=== PATIENT | male | born 1940 | race Caucasian/White ===

== ENCOUNTER → 2018-07-09 | Outpatient (CLI) | payer MEDICARE | LOC: GMAL 15:44 | PROVIDERS: ATTEND Family Medicine | DX: D51.3 Other dietary vitamin B12 deficiency anemia (principal); R53.83 Other fatigue; E55.9 Vitamin D deficiency, unspecified ==

== ENCOUNTER → 2018-07-27 | Outpatient (CLI) | payer MEDICARE, OTHER | LOC: GMAL 14:26 | PROVIDERS: ATTEND Family Medicine | DX: D50.8 Other iron deficiency anemias (principal) ==

== ENCOUNTER 2018-08-03 17:25 | Emergency (ER) | payer OTHER, MEDICARE ==
[2018-08-03] MEDS ORDERED: IPRATROPIUM/ALBUTEROL 3 ML VIAL NEB ONE ×2 (17:55→19:23)
--- NOTE | 2018-08-03 17:58 | ED.PDOC ---
History of Present Illness - General Chief Complaint: Respiratory Problem Stated Complaint: shortness of breath Time Seen by Provider: 08/03/18 17:47 Source: patient Exam Limitations: no limitations - History of Present Illness Comments: Has had cough and SOB x 2 weeks. Denies COPD Hx. Has no O2 at home. Hx of Bang wine daily, stopped smoking two yrs ago Cough Quality/Degree: dry cough Possible Cause: occasional episodes Improving Factors: nothing Worsening Factors: movement Associated Symptoms: cough, shortness of breath Allergies/Adverse Reactions: Allergies NO KNOWN ALLERGY Allergy (Verified 08/03/18 17:51) Home Medications: Ambulatory Orders Albuterol Inhaler [Ventolin Hfa Inhaler] 2 puff INH Q6HR #1 inh 08/03/18 Levofloxacin [Levaquin] 750 mg PO DAILY #5 tablet 08/03/18 Review of Systems - Review of Systems Constitutional: Denies: chills, fever EENTM: States: no symptoms reported Respiratory: States: cough, short of breath Cardiology: Denies: chest pain, edema Gastrointestinal/Abdominal: Denies: abdominal pain, nausea, vomiting Genitourinary: States: no symptoms reported Musculoskeletal: States: no symptoms reported Skin: States: no symptoms reported Neurological: States: no symptoms reported Endocrine: States: no symptoms reported Hematologic/Lymphatic: States: no symptoms reported Family Medical History - Family History Mother Family History: No Known Physical Exam - Physical Exam General Appearance: Alert, Obvious distress ENT Exam: normal ENT inspection, pharynx normal Neck: full range of motion Respiratory: lungs clear, decreased breath sounds Cardiovascular/Chest: regular rate, rhythm, no edema Gastrointestinal/Abdominal: normal bowel sounds, non tender, soft Extremity: normal range of motion, non-tender, normal inspection, no pedal edema Neurologic: alert, normal mood/affect, oriented x 3 Skin Exam: normal color Progress - EKG/XRAY/CT EKG: Sinus Comments: first degree AV block, rate 60, VT 214, QRS 76 Departure - Departure Clinical Impression: RLL pneumonia Qualifiers: Pneumonia type: due to unspecified organism Qualified Code(s): J18.1 - Lobar pneumonia, unspecified organism Disposition: Discharge to Home or Self Care Condition: Fair Departure Forms: ED Discharge - Pt. Copy, Patient Portal Self Enrollment Referrals: Nehemias Pierce III, MD [Primary Care Provider] - 1-2 Weeks Prescriptions: Albuterol Inhaler [Ventolin Hfa Inhaler] 2 puff INH Q6HR #1 inh Levofloxacin [Levaquin] 750 mg PO DAILY #5 tablet Home Medications: Ambulatory Orders Albuterol Inhaler [Ventolin Hfa Inhaler] 2 puff INH Q6HR #1 inh 08/03/18 Levofloxacin [Levaquin] 750 mg PO DAILY #5 tablet 08/03/18
[2018-08-03 18:07] VITALS: TEMP 97.1
--- NOTE | 2018-08-03 18:55 | RAD ---
EXAM DESCRIPTION: Chest,1 View CLINICAL HISTORY: sob COMPARISON: None. FINDINGS: Cardiac silhouette is within normal limits. There is atelectasis and consolidation at the right medial lung base. Mild atelectasis involves the left lung base. Subcutaneous Central catheter tip is at the mid SVC. IMPRESSION: Right lung base consolidation. Electronically signed by: Srikanth Miguel 08/03/2018 6:54 PM CLINICAL RADIOLOGIST
[2018-08-03] MEDS ORDERED: levoFLOXacin 750MG IV 750 MG in PREMIX BAG 1 BAG IVPB ONE (19:19)
[2018-08-03] MEDS ORDERED: SODIUM CHLORIDE 0.9% 1000ML 1,000 ML IVS ONE (19:23)
[2018-08-03 22:42] VITALS: BP 108/54; O2SAT 94
== END 2018-08-03 22:44 | disposition home or self-care (01) ==
LOC: ER 17:25
DX: J18.9 Pneumonia, unspecified organism (principal); I44.0 Atrioventricular block, first degree; Z87.891 Personal history of nicotine dependence
CPT/HCPCS: 36415; 71045; 80053; 85025; 87040; 93005; 94640; J1956; J7030; J7620

== ENCOUNTER → 2018-10-19 | Outpatient (CLI) | payer MEDICARE | LOC: GMAL 11:38 | PROVIDERS: ATTEND Family Medicine | DX: D51.3 Other dietary vitamin B12 deficiency anemia (principal); E55.9 Vitamin D deficiency, unspecified ==

== ENCOUNTER → 2019-01-25 | Outpatient (CLI) | payer OTHER | LOC: GMAL 15:03 | PROVIDERS: ATTEND Family Medicine | DX: D51.3 Other dietary vitamin B12 deficiency anemia (principal); D50.8 Other iron deficiency anemias ==

== ENCOUNTER → 2019-03-30 | Outpatient (CLI) | payer OTHER | LOC: GMAL 10:56 | PROVIDERS: ATTEND Family Medicine | DX: D50.8 Other iron deficiency anemias (principal) ==

== ENCOUNTER → 2019-05-11 | Outpatient (CLI) | payer OTHER | LOC: GMAL 10:36 | PROVIDERS: ATTEND Family Medicine | DX: D50.8 Other iron deficiency anemias (principal); R53.83 Other fatigue; Z79.899 Other long term (current) drug therapy ==

== ENCOUNTER → 2019-05-13 | Outpatient (CLI) | payer MEDICARE ==
--- NOTE | 2019-05-14 08:15 | CT ---
EXAM DESCRIPTION: Head w/Contrast: Computed Tomography. 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 TECHNIQUE: Head: Spiral -axial scans through the head and brain at 5 x 20 mm intervals, without and with nonionic IV contrast. Coronal and sagittal 2.0 mm postcontrast reconstructions. No adverse reactions. Total Exam DLP: 1142.22 mGy-cm. This exam was performed according to our departmental CT dose-optimization program which includes automated exposure control, adjustment of the mA and/or kV according to patient size and/or use of iterative reconstruction technique; to reduce radiation dose to as low as reasonably achievable (ALARA). FINDINGS: No intra-axial hemorrhage. No mass-effect and no midline shift. Normal contrast enhancement. Prominent bilateral periventricular white matter low-density involving the whitley radiata and the centrum semiovale more left cerebrum than right no abnormal radiodense material in the brain parenchyma.Vascular calcifications anterior circulation; physiologic calcifications in the pineal gland and choroid plexus. No effacement or displacement of the ventricles, CSF spaces, or subdural spaces. Normal contrast enhancement. No extra axial fluid collection or hemorrhage. No gross abnormalities of the bony calvarium. 4.3 mm enlarged diameter of the left ICA as it enters the cranial vault 4.4 mm enlarged bifurcation of the left ICA to form the anterior and middle cerebral arteries. Moderate atherosclerotic calcification of this segment. IMPRESSION: 1. No hemorrhage. No mass effect or midline shift.. White matter low-density bilaterally related to cerebral microvascular disease or aging. Central and cortical atrophy. No abnormal enhancement. 2. Ectasia versus small aneurysms of the proximal intracranial segment of the left ICA including the bifurcation to form the middle and anterior cerebral arteries. Atherosclerotic calcifications also noted. Consider follow-up CTA of the head with IV contrast if clinically indicated.. Electronically signed by: Srikanth Higgins MD 05/14/2019 8:09 AM CDT
--- NOTE | 2019-05-14 09:49 | CT ---
EXAM DESCRIPTION: Chest w/Contrast : Computed Tomography. CLINICAL HISTORY: 78 years Male SQUAMOUS CELL CA OF TONGUE COMPARISON: CT scans of the head neck and maxillofacial bones with contrast today TECHNIQUE: Spiral-axial scans at 5 x 5 mm intervals through the lungs and thorax with IV contrast. 2.5 x 5 mm lung algorithm axial reconstructions. Coronal and sagittal 3.0 Mm reconstructions. No adverse reactions. Total Exam DLP: 583.1 mGy-cm. This exam was performed according to our departmental dose-optimization program which includes automated exposure control, adjustment of the mA and/or kV according to patient size and/or use of iterative reconstruction technique; to reduce radiation dose to as low as reasonably achievable (ALARA). Nodule measurements under 10 mm are given as mean value of 3 axes diameters. FINDINGS: Lungs and large airways: 5 mm nodule with central calcification in the subpleural superior segment right lower lobe on image 10/88. Thickening of the pleura abutting the inferior lateral right major fissure. Bilateral lower lobe 7 mm focal pleural scarring versus nodule abutting the left posterior lateral hemidiaphragm and the left lower lobe with surrounding scarring on image 10/117. Pleural parenchymal scarring. No dominant soft tissue mass or focal infiltrate. Pleural spaces: Bilateral regions of focal pleural thickening with no effusion or pneumothorax. Mediastinum and Mimi: Normal size lymph nodes no abnormal enhancement or dominant soft tissue masses. Great vessels and Heart: Atherosclerotic calcifications in the coronary arteries, brachiocephalic vessels and thoracic aorta Soft tissues of neck base, axillae, and chest wall: No dominant soft tissue masses. Collateral circulation around left subclavian injection port upper anterior left chest. Upper abdomen: Almost 2 cm calcification in the gallbladder. Minimal dilation of the common bile duct. Normal CT enhancement in the spleen. Adrenal glands normal size and enhancement. Moderate atherosclerotic calcification of the proximal aorta and major branch vessels that are included. Fatty infiltration of the liver with questionable enhancing normal tissue or mass approximately 3 cm diameter upper lateral right lobe. Osseous structures: Spondylosis in the included thoracic spine with minimal scoliosis and lordosis. Also lack of bone density. Bilateral first costosternal arthrosis and mild sternal clavicular arthrosis bilaterally. Arthrosis right glenohumeral joint. No lytic or blastic lesions. IMPRESSION: 1. 5 mm granuloma in the right lower lobe with central calcification. 7 mm subpleural nodule versus focal pleural thickening abutting the left lateral hemidiaphragm in the left lower lobe. No mediastinal or hilar adenopathy. See [facility] Best Practice recommendations for imaging follow-up of nodule below*. 2. Fatty infiltration of the liver with focal region of fatty sparing versus enhancing mass, approximately 3 cm diameter superior lateral right lobe. Consider follow-up CT scan the abdomen and pelvis with IV contrast. * 2017 Fleischner Society Recommendations for Single Solid Lung Nodule Follow-Up based on size (average of long- and short-axis diameters) 6-8 mm Low-Risk Patient: CT at 6-[address] at 18-24 months 6-8 mm High-Risk Patient: CT at 6-[address] at 18-24 months Electronically signed by: Srikanth Higgins MD 05/14/2019 9:48 AM CDT
--- NOTE | 2019-05-14 09:58 | CT ---
EXAM DESCRIPTION: Maxillofacial (accession [id number]), Soft Tissue Neck w/Contrast (accession [id number]): Computed Tomography CLINICAL HISTORY: 78 years Male, SQUAMOUS CELL CA OF TONGUE COMPARISON: None. TECHNIQUE: Spiral, axial 2.5 x 2.5 mm scans through the neck soft tissues and maxillofacial bones after infusion of IV contrast. Sagittal and coronal 2.0 mm reconstructions. 2.5 x 2.5 mm axial bony algorithm scans. No adverse reactions. Total Exam DLP: 597.11 mGy-cm. This exam was performed according to our departmental CT dose-optimization program which includes automated exposure control, adjustment of the mA and/or kV according to patient size and/or use of iterative reconstruction technique; to reduce radiation dose to as low as reasonably achievable (ALARA). FINDINGS: Thickening is noted anterior to the maxilla subcutaneous adipose tissue with minimal enhancement and also extending inferiorly and anterior to the mandible. Upper and lower dentures in place with enhancing soft tissue on the inner and outer aspects of the maxillary bone superiorly to the level of the antral sinuses. Not uncommon with household personal assistant denture use. No asymmetric mass. This enhancing soft tissue is not seen around the mandibular dentures. 4 Posts; 2 bilateral, associated with the mandibular dentures. Mottled appearance of the anterior maxillary bony tooth bed, not uncommon in long-term maxillary denture use. The sublingual muscles at the floor of the mouth are symmetric. Surgical clips abutting the anterior right aspect of the tongue with enhancement asymmetrically increased compared to the contralateral space. No definite mass. Clips also more posteriorly on the right at the level of the epiglottis and the right submandibular gland is absent. The right posterior tongue has been partially resected. Inhomogeneous enhancement but no mass. The subcutaneous tissue has been resected lateral to these clips inferior to the right mandible, lateral and superior to the right hyoid bone. No abnormal enhancement or mass, but minimal architectural distortion. Left anterior sublingual gland is visualized but the right sublingual gland is not well seen. Posterior midline and left tongue and the base demonstrates more uniform soft tissue density and enhancement. The vallecula are enlarged with normal enhancement of the margins. Spot palate is inhomogeneous. Normal size and enhancement of the epiglottis, tissue around the piriform sinuses, and the included glottis. The focal cords are unremarkable. Symmetric enhancement of the thyroid gland with small nodes abutting the neck base. And thoracic inlet. No abnormal nodes at the level of the larynx and glottis or hypopharynx. No abnormal nodes in the bilateral carotid spaces or the paracervical spaces. Normal size and density of enhancement of the parotid glands. Small left submandibular gland. Nasopharynx is slightly dilated. No mass or abnormal enhancement. No loree-pharyngeal adenopathy. Mucosal periosteal thickening and/or polyps or retention cysts in the base of the left antrum. Mucoperiosteal thickening in the base of the right antrum. No air-fluid levels. Some mottling of the bone at the bases of the antrum. Posterior midline septum deviated to the left with septal spur. Anterior septum in the midline. Nasal bones and anterior maxillary spine are intact. Hypoplastic frontal sinuses larger on the left. Sphenoid and ethmoid and rudimentary frontal sinuses are well aerated with no significant thickening or air-fluid levels. Bilateral mastoid air cells are well aerated. Internal auditory structures are grossly normal. Spondylosis in the atlantoaxial joint. Multiple levels of facet arthrosis in the cervical spine with levoscoliosis. Also spondylosis at C5-C6 with possible bilateral neural foraminal stenosis. Also spondylosis C6-C7 with possible right neural foraminal stenosis. IMPRESSION: 1. Right radical neck dissection for tongue cancer. Portion of the right posterior tongue is absent. Surgical changes in the right mouth floor, and right subcutaneous tissues at the surgical site. Right submandibular gland has been removed. Possible removal of the right sublingual gland. Asymmetric enhancement at this site. Correlate with clinical findings. Enhancement at the surgical site abutting the tongue resection and submandibular gland resection, but no definite mass. 2. Inhomogeneous enhancement of the upper tongue with lower tongue and base unremarkable. Heterogeneous appearance of the soft palate. Dilation of the vallecula. Remaining oral pharyngeal structures are unremarkable with no mass or abnormal enhancement. Nasopharynx is slightly dilated. No enlarged or abnormally enhancing parapharyngeal nodes, or nodes in the carotid space, paracervical space. 3. Uniform thickening of soft tissue around the maxillary dentures with anterior thickening of the adipose tissue anterior to the axillary and mandibular dentures. This is partially related to denture use and the plastic base for the dentures. Bone density loss in the maxilla tooth bed inferior to the antral sinuses, not uncommon in long-term denture use in the maxillary bone. 3. Chronic paranasal sinusitis left antrum more than right. Posterior septal spur. Rudimentary frontal sinuses. Remaining paranasal sinuses are unremarkable. Electronically signed by: Srikanth Higgins MD 05/14/2019 9:57 AM CDT
== END ==
LOC: CT 11:54
PROVIDERS: ATTEND Family Medicine
DX: C02.9 Malignant neoplasm of tongue, unspecified (principal); Z98.890 Other specified postprocedural states; J32.9 Chronic sinusitis, unspecified; J84.10 Pulmonary fibrosis, unspecified; R91.8 Other nonspecific abnormal finding of lung field; K76.0 Fatty (change of) liver, not elsewhere classified; I77.89 Other specified disorders of arteries and arterioles

== ENCOUNTER → 2019-05-19 | Outpatient (CLI) | payer MEDICARE ==
--- NOTE | 2019-05-19 14:42 | CT ---
EXAM DESCRIPTION: Abdomen/Pelvis w/Contrast CLINICAL HISTORY: LIVER MASS COMPARISON: The chest May 13, 2019 TECHNIQUE: Postcontrast CT images of the abdomen and pelvis are obtained using standard imaging protocol. This exam was performed according to our departmental dose-optimization program, which includes automated exposure control, adjustment of the mA and/or kV according to patient size and/or use of iterative reconstruction technique . FINDINGS: Visualized lung bases show mild emphysematous changes. Heterogeneous peripherally enhancing mass with central irregular decreased attenuation in the dome of the right lobe liver measures 3.7 x 3.1 cm. Overall heterogeneous attenuation of the liver is seen. A second peripherally enhancing central decreased attenuation lesion in the inferior right lobe of liver measures 1.5 cm. Subtle subcapsular low-attenuation lesion in the posterior mid right lobe liver measuring 12 mm image 27 of series 2. This is better seen on coronal constructed images. The caudate lobe of liver is somewhat irregular and nodular. Spleen is mildly enlarged at 13 cm. Pancreas and adrenal glands are unremarkable. Large 2.4 cm calcified gallstone in the gallbladder without biliary tract obstruction or inflammation. Severe calcific atherosclerotic disease. 1.9 cm fluid attenuation cortical cyst of the upper pole right kidney. Left kidney unremarkable. No ureteral calcification or obstruction. Urinary bladder is poorly distended with circumferential bladder wall thickening and trabeculations. Small diverticulum of the right floor the urinary bladder. Moderate prostate calcifications. Small amount of ascites in the right lower pelvis. Appendix normal. A poorly distended. No mass lesion or inflammatory changes. Mild air and fluid-filled distention of small bowel throughout the abdomen without transition point. Moderate scattered diverticuli of the colon without associated inflammatory changes or fluid collections. Mild circumferential wall thickening of the right to mid transverse colon without surrounding inflammatory changes. No pathologically enlarged abdominal or retroperitoneal lymphadenopathy. Osseous structures show no aggressive bony lesions. Diffuse osteopenia the osseous structures. IMPRESSION: 3 irregular peripherally enhancing liver lesions are seen on background diffuse heterogeneous attenuation of the liver. These are concerning for metastatic disease. No delayed images were obtained to evaluate for hemangioma. Consider further evaluation with MRI imaging using hemangioma protocol or tissue sampling of the 1.5 cm lesion in the inferior right lobe of the liver. Mild splenomegaly. Cholelithiasis. Small amount of ascites in the pelvis is abnormal. Etiology is unknown. Severe atherosclerotic disease. Colon diverticulosis without CT evidence of diverticulitis. Urinary bladder thickening or trabeculations in diverticuli consistent with some degree of chronic bladder obstruction. Wall thickening of the right to transverse colon may be secondary to poor distention versus mild nonspecific colitis. No surrounding inflammatory changes are seen. Electronically signed by: Lupillo Jackson MD 05/19/2019 2:41 PM CDT
== END ==
LOC: CT 12:54
PROVIDERS: ATTEND Family Medicine
DX: K76.89 Other specified diseases of liver (principal); N28.1 Cyst of kidney, acquired; R16.1 Splenomegaly, not elsewhere classified; K80.20 Calculus of gallbladder without cholecystitis without obstruction; R18.8 Other ascites; K57.30 Diverticulosis of large intestine without perforation or abscess without bleeding; N32.9 Bladder disorder, unspecified; I70.90 Unspecified atherosclerosis

== ENCOUNTER → 2019-05-25 | Outpatient (CLI) | payer MEDICARE ==
--- NOTE | 2019-05-25 15:06 | MRI ---
EXAM DESCRIPTION: Abdomen w/wo Contrast CLINICAL HISTORY: 78 years Male, Other specified diseases of liver COMPARISON: CT abdomen and pelvis dated 05/19/2019. TECHNIQUE: Multiplanar multiecho imaging of the abdomen was performed before and after gadolinium administration. FINDINGS: Visualized lower thorax appears normal. The liver demonstrates diffuse fatty infiltration. 3.4 x 2.8 cm mildly T2 hyperintense lesion with peripheral enhancement is identified in the dome of the liver and hepatic segments 7/8. 1.4 cm T2 hyperintense lesion with restricted diffusion peripherally enhancement is identified in the inferior aspect of the right lobe of the liver and hepatic segment 5. These lesions are concerning for metastatic disease. The third lesion questioned on prior CT is not visualized on today's examination. Few gallstones are identified. The pancreas, bilateral adrenal glands and kidneys appear normal. A simple cyst is identified in the upper pole of the right kidney. The spleen is mildly enlarged in size. The visualized stomach appears grossly unremarkable. The visualized bones appear grossly unremarkable. Small volume perihepatic ascites. No intrahepatic or extrahepatic periductal dilatation. The pancreatic duct demonstrates a normal caliber. IMPRESSION: 1. Previously identified lesions in the dome of the right hepatic lobe in segment 7/8 and inferior aspect of the right hepatic lobe in segment 5 demonstrate peripheral enhancement and restricted diffusion, concerning for malignancy. The third lesion is not definitively seen. 2. Small volume perihepatic ascites. 3. Cholelithiasis. Electronically signed by: Domitila Atkinson MD 05/25/2019 3:04 PM SIGNAL APPRENTICE
== END ==
LOC: MRI 10:53
PROVIDERS: ATTEND Family Medicine
DX: K76.89 Other specified diseases of liver (principal); R18.8 Other ascites

== ENCOUNTER → 2019-06-10 | Outpatient (CLI) | payer MEDICARE ==
--- NOTE | 2019-06-11 09:47 | US ---
EXAM DESCRIPTION: Biopsy/Needle Guidance: Ultrasound. CLINICAL HISTORY: LIVER MASS COMPARISON: CT scan of abdomen and pelvis with contrast 19 May 2019. Abdomen MRI with and without contrast 25 May 2019. TECHNIQUE: Timeout was performed prior to the procedure for purposes of proper patient identification and identification of procedure and body part. Procedure performed by Dr. Higgins; explained to the patient with risks and benefits. Patient gave verbal and written consent. Left decubitus on ultrasound table right flank and side exposed. Transcutaneous scanning: Two-dimensional mode, prior to the procedure to localize the liver mass Sterile preparation and draping. Local skin anesthetic, prior to incision, made anterior lateral right abdomen overlying the mid liver underneath the anterior rib. 18-gauge Bard b-datumty 15 cm core biopsy system was utilized with outer 17-gauge introducer. Despite numerous attempts, the needle tip could not be visualized within the mass.. Also patient had increased tenderness underlying the rib and irregular respirations related to COPD causing needle movement. No immediate complications. Patient transferred to the CT suite for CT guided biopsy. FINDINGS: In the dome of the right liver abutting the abdominal wall and base of the right lung pleura is a complex mass measuring 3.6 x 3.0. Mostly solid with no significant fluid component. In the more inferior and lateral right lobe, where mass was seen on CT, no subcapsular mass is visualized. Long axis right lobe 17.9 cm with fatty echotexture. Physiologic vascularity and normal caliber of the ducts. Aorta 1.7 cm proximal caliber within normal limits. Right kidney 10.7 cm long axis normal cortical echogenicity with minimal cortical thinning. No echogenic stones or hydronephrosis. 2.1 cm simple cyst. Gallbladder is contracted. 1.1 cm gallstone with acoustic shadowing. Scans during the procedure show the echogenic needle tip not within the mass. IMPRESSION: 1. Unsuccessful ultrasound-guided attempt to perform needle core biopsy of right hepatic mass. Biopsy was performed later in the day by CT guidance. 2. Proximal abdominal aorta and right kidney are unremarkable. No ascites. 1.1 cm gallstone in the gallbladder. Electronically signed by: Srikanth Higgins MD 06/11/2019 9:46 AM PURE PAK MACHINE OPERATOR
--- NOTE | 2019-06-11 16:24 | CT ---
EXAM DESCRIPTION: CT scan abdomen without and with IV contrast and CT-guided liver biopsy.: Computed Tomography. CLINICAL HISTORY: History of tongue cancer. CT scan abdomen and pelvis 19 May 2019 showing 2 lesions in the right lobe of the liver. COMPARISON: CT scan the abdomen 19 May 2019. MRI scan of the liver and abdomen 25 May 2019. Attempted ultrasound-guided liver biopsy prior to this procedure. TECHNIQUE: Spiral-axial scans at 2.5 x 2.5 mm mm intervals, from the diaphragms through the upper pelvis, before IV contrast and 2 sets of 5 mm x 5 mm scans, after 75 mL Optiray 320 nonionic IV contrast, facet for arterial phase and second set 60 seconds later. No oral contrast. No reconstructions. Timeout was performed and consented again obtained. Patient placed supine on CT table, feet toward the gantry, right lateral and anterior abdominal wall exposed. The smaller, more inferior and lateral right hepatic lobe mass chosen for biopsy and localized on helical axial images 2.5 x 2.5 mm. Table position recorded and repeat images with wire localizer on the right posterior chest wall. Skin marked and prepped with sterile solution, sterile drape and 1% Xylocaine local anesthetic. Skin needle remained in place. Repeat imaging to confirm position of skin needle and measure depth of mass. Skin justin with #11 scalpel. 17-gauge 13.5 cm Bard trocar and wedge tipped cannula introduce 5 cm and images confirmed trocar-cannula tip 1.4 cm distal to the posterior mass wall. Trocar was withdrawn 2.5 cm, and cannula removed. Bard 18-gauge x 15 cm 2 stage biopsy gun core needle, with 1.5 cm notch, introduced into the mass. 4 almost complete core samples were obtained, with minimal depth changes, and placed in formalin. Complications: Patient tolerated the procedure well with no immediate complications. . Technically difficult study due to shallow depth of lesion and patient rapid respiratory rate. DLP 1953.23 mGy-cm. This exam was performed according to our departmental CT dose-optimization program which includes automated exposure control, adjustment of the mA and/or kV according to patient size and/or use of iterative reconstruction technique; to reduce radiation dose to as low as reasonably achievable (ALARA). FINDINGS: Lung bases and pleura: Emphysematous changes in the bilateral lung bases. Also bilateral pleural-parenchymal scars in the lower lobes. Liver, stomach, adrenal glands, and spleen: Upper liver mass not well seen precontrast but they diffuse enhancement and multiple vessels within the mass during the arterial phase. During the portal venous phase, the margins of the mass are enhancing and the mass is displacing liver capsule superiorly under the diaphragm. The mass measures approximately 3.9 x 2.3 cm. Second mass is not well visualized on the arterial phase but better visualized on the portal venous phase in the lower anterior lateral hepatic lobe approximately 3 cm from the skin surface. Dimensions are approximately 1.5 x 2 cm. Least amount of enhancement centrally. No duct dilation. Smooth capsule with no ascites. Stable appearance of the spleen and adrenal glands and stomach since the prior study. Pancreas/Gallbladder/Ducts: Large stone greater than 2 cm diameter in the gallbladder. Duct and pancreas unremarkable and stable. Kidneys and Ureters: 2 cm cyst upper right kidney bilateral pararenal compartments are visualized due to fatty density Mesentery: Fatty density throughout the abdomen but no definite stranding or inflammatory changes. Aorta: Moderate atherosclerotic calcification in the aorta and calcification of the major branch vessels at their origins. Small Bowel: No significant distention but diffuse fluid and air with small air-fluid levels. Terminal Ileum/Cecum: Partially visualized along with partial visualization of the appendix but no inflammatory changes. Colon: Minimal fecal material in the included segments with descending colon diverticula but no complications. Distal colon Not included. Spine: Multiple levels of spondylosis in the included segments more severe in the lumbar spine. Abdominal Wall/Back Soft Tissues: Minimal diastases at the umbilicus not containing fluid or bowel. IMPRESSION: 1. 2 diffuse partially enhancing mass lesions in the liver. The largest is at the dome of the liver superior right hepatic lobe displacing the hepatic capsule upwards into the undersurface of the diaphragm. Smaller lesion inferior lateral segment of the right lobe near the capsule. This lesion was selected for CT-guided biopsy and was performed successfully. Electronically signed by: Srikanth Higgins MD 06/11/2019 4:23 PM [facility]
== END ==
LOC: CT 07:56
PROVIDERS: ATTEND Surgery
DX: K74.60 Unspecified cirrhosis of liver (principal); K76.0 Fatty (change of) liver, not elsewhere classified; K80.20 Calculus of gallbladder without cholecystitis without obstruction

== ENCOUNTER → 2019-06-30 | Outpatient (CLI) | payer MEDICARE | LOC: GMAL 10:30 | PROVIDERS: ATTEND Family Medicine | DX: E78.2 Mixed hyperlipidemia (principal); R53.82 Chronic fatigue, unspecified; K76.89 Other specified diseases of liver; R23.3 Spontaneous ecchymoses ==

== ENCOUNTER → 2019-07-01 | Outpatient (CLI) | payer MEDICARE | LOC: LAB.O 14:03 | PROVIDERS: ATTEND Family Medicine | DX: R94.5 Abnormal results of liver function studies (principal); R53.83 Other fatigue ==

== ENCOUNTER → 2019-11-15 | Outpatient (CLI) | payer MEDICARE | LOC: GMAL 11:19 | PROVIDERS: ATTEND Family Medicine | DX: D50.8 Other iron deficiency anemias (principal) ==

== ENCOUNTER 2019-11-23 11:16 | Emergency (ER) | payer MEDICARE ==
--- NOTE | 2019-11-23 12:11 | RAD ---
EXAM DESCRIPTION: Chest,1 View CLINICAL HISTORY: 79 years Male, Acute chest tightness COMPARISON: August 03, 2018 Findings: One view(s)/radiograph(s) Borderline cardiomegaly. No pulmonary vascular congestion. No pneumothorax. No pleural effusion. Right basilar airspace disease. The left lung is clear. The patient is rotated. Left chest wall port tip overlying the SVC. No acute or suspicious osseous abnormality. IMPRESSION: Right basilar airspace disease; atelectasis or pneumonia. Electronically signed by: Jaylen Larkin MD 11/23/2019 12:09 PM CDT
[2019-11-23] MEDS ORDERED: AMOXICILLIN & POT CLAVULANATE 875 MG TAB PO ONE (14:20)
--- NOTE | 2019-11-23 14:24 | ED.PDOC ---
History of Present Illness - General Chief Complaint: Allergic Reaction Stated Complaint: poss allergic reaction Time Seen by Provider: 11/23/19 11:25 Source: patient Exam Limitations: no limitations - History of Present Illness Comments: TOOK IRON PILLS. FEELS LIKE THEY IRRITATED HIS THROAT. RESULTED IN COUGHING, WHICH RESULTED IN CHEST MILD TIGHTNESS. IS ON HOSPICE FOR H/O TONGUE CANCER 2 YRS AGO. Timing/Duration: just prior to arrival Cough Quality/Degree: mild, dry cough Possible Cause: no prior episodes Improving Factors: nothing Worsening Factors: nothing Associated Symptoms: chest pain/soreness Allergies/Adverse Reactions: Allergies NO KNOWN ALLERGY Allergy (Verified 08/03/18 17:51) Home Medications: Ambulatory Orders Albuterol Inhaler [Ventolin Hfa Inhaler] 2 puff INH Q6HR #1 inh 08/03/18 Levofloxacin [Levaquin] 750 mg PO DAILY #5 tablet 08/03/18 Amoxicillin & Pot Clavulanate [Augmentin] 875 mg PO BID #20 tab 11/23/19 Review of Systems - Review of Systems Constitutional: Denies: chills, fever EENTM: States: throat pain. Denies: nose congestion, throat swelling, mouth swelling Respiratory: States: cough. Denies: short of breath, wheezing Cardiology: Denies: chest pain - "TIGHTNESS", palpitations Gastrointestinal/Abdominal: Denies: abdominal pain, nausea Musculoskeletal: States: no symptoms reported Skin: Denies: change in color, lesions, lumps, rash Neurological: Denies: headache, weakness Endocrine: Denies: increased hunger, increased thirst, unexplained weight gain, unexplained weight loss Hematologic/Lymphatic: Denies: easy bleeding, easy bruising All other Systems: Reviewed and Negative Past Medical History (General) - Patient Medical History Hx Stroke: Yes Hx of COPD: No Hx Cardiac Disorders: Yes - Atrial fib Hx Congestive Heart Failure: No Hx Hypertension: Yes Hx Diabetes: No Hx Gastroesophageal Reflux: No Hx Cancer: Yes - tongue - Vaccination History Hx Tetanus, Diphtheria Vaccination: No Hx Influenza Vaccination: No Hx Pneumococcal Vaccination: Yes - Social History Hx Tobacco Use: Yes Hx Alcohol Use: Yes - Activities of Daily Living [facility]ospice Agency (if applicable):: [facility] Family Medical History - Family History Mother Family History: No Known Physical Exam - Physical Exam General Appearance: Alert, No apparent distress Eye Exam: bilateral normal ENT Exam: normal ENT inspection, hearing grossly normal, TMs normal, pharynx normal Neck: non-tender, full range of motion, supple, normal inspection Respiratory: chest non-tender, lungs clear, normal breath sounds, no respiratory distress, no accessory muscle use Cardiovascular/Chest: normal peripheral pulses, regular rate, rhythm Gastrointestinal/Abdominal: normal bowel sounds, non tender, soft, no pulsatile mass Extremity: normal range of motion, non-tender, normal inspection 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 CXR SHOWS R BASILAR PNE. THIS EXPLAINS HIS COUGH AND CHEST TIGHTNESS. COINCIDENTAL TIMING WITH TAKING HIS IRON PILLS. (NO ALLERGIC REACTION OCCURRED.) 95% RA AND VSS THUS HE IS STABLE FOR OUTPT PO TX FOR PNE. COVID SWAB PENDING. EKG NSR w/ 1st degree block. NO ACUTE ST CHANGES. CBC SHOWS ANEMIA. BMP, COAGS, CARD ENZ NEG. EASILY AMBULATES, GOOD STRENGTH, NO SOB. SAFE FOR DC TO HOME. Departure - Departure Clinical Impression: Cough, Tightness in chest Pneumonia involving right lung Qualifiers: Pneumonia type: due to unspecified organism Lung location: lower lobe of lung Qualified Code(s): J18.9 - Pneumonia, unspecified organism Disposition: Discharge to Home or Self Care Condition: Good Departure Forms: ED Discharge - Pt. Copy, Patient Portal Self Enrollment Instructions: Pneumonia, Adult (DC) Diet: resume usual diet Activity: increase activity as tolerated Referrals: Nehemias Pierce III, MD [Primary Care Provider] - 1-2 Weeks Prescriptions: Amoxicillin & Pot Clavulanate [Augmentin] 875 mg PO BID #20 tab Home Medications: Ambulatory Orders Albuterol Inhaler [Ventolin Hfa Inhaler] 2 puff INH Q6HR #1 inh 08/03/18 Levofloxacin [Levaquin] 750 mg PO DAILY #5 tablet 08/03/18 Amoxicillin & Pot Clavulanate [Augmentin] 875 mg PO BID #20 tab 11/23/19
[2019-11-23 14:49] VITALS: BP 120/64; TEMP 97.4; O2SAT 94
== END 2019-11-23 14:40 | disposition home or self-care (01) ==
LOC: ER 11:16
DX: R07.89 Other chest pain (principal); J18.9 Pneumonia, unspecified organism; I48.91 Unspecified atrial fibrillation; I10 Essential (primary) hypertension; Z85.810 Personal history of malignant neoplasm of tongue
CPT/HCPCS: 36415; 71045; 80048; 82550; 82553; 84484; 85025; 85610; 85730; 93005; U0002

== ENCOUNTER → 2019-12-14 | Outpatient (CLI) | payer MEDICARE, OTHER | LOC: GMAL 11:48 | PROVIDERS: ATTEND Family Medicine | DX: D50.8 Other iron deficiency anemias (principal) ==

== ENCOUNTER → 2020-03-13 | Outpatient (CLI) | payer OTHER | END | disposition home or self-care (01) | LOC: SOLHO 11:05 | PROVIDERS: ATTEND Family Medicine | DX: Z13.29 Encounter for screening for other suspected endocrine disorder (principal); D50.9 Iron deficiency anemia, unspecified ==

== ENCOUNTER 2020-04-11 12:02 | Emergency (ER) | payer MEDICARE ==
--- NOTE | 2020-04-11 13:11 | RAD ---
EXAM DESCRIPTION: Abdomen Series CLINICAL HISTORY: 79 years Male, poor po intake, hx throat cancer COMPARISON: None. FINDINGS: Single view of the chest demonstrates a normal-sized heart and tortuous aorta with left subclavian [id number] in place with the catheter tip in the upper superior vena cava. No free abdominal air is seen and no basilar lung disease noted. Skinfolds overlie the left lateral chest. Bowel gas pattern is nonobstructive with several minimally prominent loops of small bowel in the central abdomen to the left of midline. Mild abdominal ileus suspected. Increased density in the right flank and right upper quadrant suggest possibility of hepatomegaly. An enlarging mass in the inferior right lobe of the liver should be considered. Numerous calcifications in the right paraspinous region at the L1 level noted. This may represent stones within a medially positioned gallbladder. Degenerative changes in the spine and pelvis noted. IMPRESSION: 1. Nonspecific bowel gas pattern suggesting an ileus without evidence of obstruction. 2. Soft tissue fullness in the right flank region suggesting either enlargement of the liver or possible low enlargement of inferior right lobe hepatic mass or less likely renal mass. 3. Right upper quadrant calcification suggesting cholelithiasis. Electronically signed by: Horace Kent MD 04/11/2020 1:09 PM CDT
[2020-04-11] MEDS ORDERED: SODIUM CHLORIDE 0.9% 1000ML 1,000 ML IVS ONE (13:29)
--- NOTE | 2020-04-11 14:07 | CT ---
EXAM DESCRIPTION: Abdoment/Pelvis w/o Contrast CLINICAL HISTORY: 79 years Male, eval possible rt sided mass, acute renal failure TECHNIQUE: This exam was performed according to our departmental dose-optimization program, which includes automated exposure control, adjustment of the mA and/or kV according to patient size and/or use of iterative reconstruction technique. COMPARISON: 05/19/2019 FINDINGS: Evaluation limited by lack of intravenous contrast. Visualized lung bases are grossly unremarkable. Innumerable hypoattenuating ill-defined hepatic lesions predominantly centered in the hepatic dome. Likely portal vein thrombosis. Lobular liver contour. Cholelithiasis. The contours of the spleen, pancreas and adrenal glands are unremarkable. Right renal cyst measuring 1.5 cm. Bilateral renal vascular calcifications. No hydronephrosis. No obstructing urolithiasis. Unremarkable bladder. Scattered colonic diverticula without focal inflammatory change. No evidence of bowel obstruction. No findings to suggest appendicitis. Moderate volume ascites. No adenopathy. No free air. Diffuse atherosclerotic disease. Normal caliber abdominal aorta. No acute or suspicious osseous abnormality. Scattered degenerative changes present. IMPRESSION: 1. Innumerable ill-defined hypoattenuating hepatic lesions predominantly centered in the hepatic dome with likely portal vein thrombosis. Recommend MRI abdomen with contrast for further evaluation. 2. Moderate volume ascites. 3. Right renal cyst measuring 1.5 cm. Electronically signed by: Jaylen Larkin MD 04/11/2020 2:06 PM CDT
--- NOTE | 2020-04-11 15:13 | ED.PDOC ---
History of Present Illness - General Chief Complaint: General Stated Complaint: weakness Time Seen by Provider: 04/11/20 12:06 Source: patient Exam Limitations: no limitations - History of Present Illness Initial Comments: The patient is an 79-year-old male who presented emergency room after being sent by home health secondary to him feeling weak and tired. He is cur rently on hospice for throat cancer. He has had significant weight loss and significant decrease in function over the past month or 2. He reports that he is not able to eat very much food. He is not hungry. Food has no taste for him. He has had surgeries on the oropharynx which do make it more difficult as well. No fevers. No real shortness of breath. No syncope. He denies any recent falls. He is pleasant and cooperative. He denies diarrhea or constipation or vomiting. Timing/Duration: unsure Severity: moderate Improving Factors: nothing Worsening Factors: nothing Associated Symptoms: loss of appetite, malaise Allergies/Adverse Reactions: Allergies NO KNOWN ALLERGY Allergy (Verified 08/03/18 17:51) Home Medications: Ambulatory Orders Albuterol Inhaler [Ventolin Hfa Inhaler] 2 puff INH Q6HR #1 inh 08/03/18 Levofloxacin [Levaquin] 750 mg PO DAILY #5 tablet 08/03/18 Amoxicillin & Pot Clavulanate [Augmentin] 875 mg PO BID #20 tab 11/23/19 Review of Systems - Review of Systems Constitutional: States: malaise, weakness - Generalized EENTM: States: no symptoms reported Respiratory: States: no symptoms reported Cardiology: States: no symptoms reported Gastrointestinal/Abdominal: States: see HPI Genitourinary: States: no symptoms reported Musculoskeletal: States: no symptoms reported Skin: States: no symptoms reported Neurological: States: see HPI Endocrine: States: no symptoms reported All other Systems: No Change from Baseline Past Medical History (General) - Patient Medical History Hx Stroke: Yes Hx of COPD: No Hx Cardiac Disorders: Yes - Atrial fib Hx Congestive Heart Failure: No Hx Hypertension: Yes Hx Diabetes: No Hx Gastroesophageal Reflux: No Hx Cancer: Yes - tongue - Vaccination History Hx Tetanus, Diphtheria Vaccination: No Hx Influenza Vaccination: No Hx Pneumococcal Vaccination: Yes - Social History Hx Tobacco Use: Yes Hx Alcohol Use: Yes Family Medical History - Family History Mother Family History: No Known Physical Exam - Physical Exam General Appearance: Alert, Comfortable, Frail, No apparent distress Eye Exam: bilateral normal Ears, Nose, Throat: hearing grossly normal, other - Chronic oropharyngeal and neck changes related to previous surgeries for cancer Neck: other - See above Respiratory: lungs clear, normal breath sounds, no respiratory distress, no accessory muscle use Cardiovascular/Chest: normal peripheral pulses, regular rate, rhythm, no edema Peripheral Pulses: radial,right: 2+, radial,left: 2+ Gastrointestinal/Abdominal: non tender - There does appear to be some hepatomegaly. No tenderness palpation however., soft Rectal Exam: deferred Back Exam: no CVA tenderness, no vertebral tenderness Extremity: normal range of motion, non-tender, normal inspection, no pedal edema, normal capillary refill Neurologic: certified welder II-XII nml as tested, alert, normal mood/affect, oriented x 3 Skin Exam: normal color Comments: Vital Signs - 24 hr 04/11/20 04/11/20 04/11/20 12:12 12:18 13:27 Temperature 97.6 F Pulse Rate [ 64 61 Right Brachial] Respiratory 20 16 Rate Blood Pressure 114/58 100/57 [Right Arm] O2 Sat by Pulse 97 98 96 Oximetry 04/11/20 04/11/20 13:29 14:37 Temperature Pulse Rate [ 56 L Right Brachial] Respiratory 20 16 Rate Blood Pressure 100/53 [Right Arm] O2 Sat by Pulse 99 Oximetry Progress - Progress Progress: 04/11/20 15:15 The patient 79-year-old male presented emergency room secondary to progressive weakness and fatigue. The patient was found to have some mild acute renal failure most likely due to dehydration. He did receive a liter of IV fluids here. The patient is no doubt also having a progression of symptoms due to progression of his cancer. The patient does have portal vein thrombosis which will markedly limit his appetite. The patient is not a candidate for anticoagulation given his long-term hypercoagulable state. Hospice care is appropriate. Patient is in agreement with going back home. ER warnings are given. stanley johnson [phone] - Results/Orders Results/Orders: Abdominal series shows possible ileus. There also appears to be a right upper quadrant mass. CT scan abdomen pelvis without contrast confirms multiple metastases to the liver and what is most likely portal vein thrombosis. EKG shows sinus bradycardia at 59 bpm with a first-degree AV block. Mild right axis deviation. Normal R wave progression. No definitive ST segment or T wave changes indicative of acute ischemia. Normal QT interval. Laboratory Tests 04/11/20 04/11/20 04/11/20 12:25 12:25 12:25 WBC 4.2 L RBC 3.68 L Hgb 10.6 L Hct 32.2 L MCV 87.5 MCH 28.8 MCHC 32.9 L RDW 19.0 H Plt Count 274 MPV 8.1 Absolute Neuts (auto) 1.80 Absolute Lymphs (auto) 2.10 Absolute Monos (auto) 0.20 Absolute Eos (auto) 0.00 Absolute Basos (auto) 0.10 Neutrophils % 43.2 Lymphocytes % 49.3 Monocytes % 3.6 Eosinophils % 0.7 L Basophils % 3.2 H PT 13.6 H INR 1.37 H PTT (SP) 28.3 Sodium 136 Potassium 4.3 Chloride 100 L Carbon Dioxide 24 Anion Gap 16.3 BUN 41 H Creatinine 2.06 H BUN/Creatinine Ratio 19.9 Random Glucose 94 Serum Osmolality 281.8 Lactic Acid Calcium 8.5 Magnesium 2.0 Total Bilirubin 1.2 H AST 45 H ALT 24 Alkaline Phosphatase 116 Ammonia Creatine Kinase 33 L CK-MB (CK-2) 1.3 CK-MB (CK-2) % Not Reportable Troponin I 0.01 B-Natriuretic Peptide 145.0 H Serum Total Protein 5.7 L Albumin 2.1 L Globulin 3.6 H Albumin/Globulin Ratio 0.6 L Amylase 10 L Lipase 16 L TSH 3.63 Urine Color Urine Appearance Urine pH Ur Specific [place] Urine Protein Urine Glucose (UA) Urine Ketones Urine Blood Urine Nitrite Urine Bilirubin Urine Urobilinogen Ur Leukocyte Esterase Urine RBC Urine WBC Ur Epithelial Cells Amorphous Sediment Urine Bacteria 04/11/20 04/11/20 04/11/20 12:25 12:25 13:55 WBC RBC Hgb Hct MCV MCH MCHC RDW Plt Count MPV Absolute Neuts (auto) Absolute Lymphs (auto) Absolute Monos (auto) Absolute Eos (auto) Absolute Basos (auto) Neutrophils % Lymphocytes % Monocytes % Eosinophils % Basophils % PT INR PTT (SP) Sodium Potassium Chloride Carbon Dioxide Anion Gap BUN Creatinine BUN/Creatinine Ratio Random Glucose Serum Osmolality Lactic Acid 1.8 Calcium Magnesium Total Bilirubin AST ALT Alkaline Phosphatase Ammonia 13 Creatine Kinase CK-MB (CK-2) CK-MB (CK-2) % Troponin I B-Natriuretic Peptide Serum Total Protein Albumin Globulin Albumin/Globulin Ratio Amylase Lipase TSH Urine Color Yellow Urine Appearance Clear Urine pH 5.0 Ur Specific [place] 1.025 Urine Protein 30 Urine Glucose (UA) Negative Urine Ketones Trace Urine Blood Negative Urine Nitrite Negative Urine Bilirubin Moderate Urine Urobilinogen 0.2 Ur Leukocyte Esterase Negative Urine RBC 0 Urine WBC 1-3 Ur Epithelial Cells 0 Amorphous Sediment Trace Urine Bacteria Rare Departure - Departure Clinical Impression: Portal vein thrombosis, Liver metastases, Dehydration Acute renal failure Qualifiers: Acute renal failure type: unspecified Qualified Code(s): N17.9 - Acute kidney failure, unspecified Disposition: Discharge to Home or Self Care Condition: Fair Departure Forms: ED Discharge - Pt. Copy, Patient Portal Self Enrollment Diet: other - Encourage frequent snacking Activity: increase activity as tolerated Referrals: Nehemias Pierce III, MD [Primary Care Provider] - 1-2 Weeks Home Medications: Ambulatory Orders Albuterol Inhaler [Ventolin Hfa Inhaler] 2 puff INH Q6HR #1 inh 08/03/18 Levofloxacin [Levaquin] 750 mg PO DAILY #5 tablet 08/03/18 Amoxicillin & Pot Clavulanate [Augmentin] 875 mg PO BID #20 tab 11/23/19 Additional Instructions: The patient 79-year-old male presented emergency room secondary to progressive weakness and fatigue. The patient was found to have some mild acute renal failure most likely due to dehydration. He did receive a liter of IV fluids here. The patient is no doubt also having a progression of symptoms due to progression of his cancer. The patient does have portal vein thrombosis which will markedly limit his appetite. The patient is not a candidate for anticoagulation given his long-term hypercoagulable state. Hospice care is appropriate. Patient is in agreement with going back home. ER warnings are given.
[2020-04-11 15:58] VITALS: BP 99/56; TEMP 97.9; O2SAT 96
== END 2020-04-11 15:59 | disposition home or self-care (01) ==
LOC: ER 12:02
DX: N17.9 Acute kidney failure, unspecified (principal); E86.0 Dehydration; I81 Portal vein thrombosis; C14.0 Malignant neoplasm of pharynx, unspecified; C78.7 Secondary malignant neoplasm of liver and intrahepatic bile duct; R00.1 Bradycardia, unspecified; I44.0 Atrioventricular block, first degree; I10 Essential (primary) hypertension; I48.91 Unspecified atrial fibrillation; Z20.828 Contact with and (suspected) exposure to other viral communicable diseases; Z86.73 Personal history of transient ischemic attack (TIA), and cerebral infarction without residual deficits; Z87.891 Personal history of nicotine dependence; Z85.810 Personal history of malignant neoplasm of tongue
CPT/HCPCS: 36415; 74019; 74176; 80053; 81001; 82140; 82150; 82550; 82553; 83605; 83690; 83735; 83880; 84443; 84484; 85025; 85610; 85730; 87635; 93005; 94760; J7030